=== PATIENT | male | born 1940 | race Caucasian/White ===

== ENCOUNTER → 2017-11-26 | Outpatient (CLI) | payer MEDICARE | END | disposition home or self-care (01) | LOC: KCIC US 09:33 | DX: B19.10 Unspecified viral hepatitis B without hepatic coma (principal); R79.89 Other specified abnormal findings of blood chemistry | CPT/HCPCS: 76705 ==

== ENCOUNTER → 2017-12-08 | Outpatient (CLI) | payer MEDICARE ==
[2017-12-08] MEDS: IOHEXOL 300 MG/ML 100ML VIAL. IV (10:52)
[2017-12-08] MEDS: IOHEXOL 240 MG/ML 50ML VIAL. PO (10:52)
== END | disposition home or self-care (01) ==
LOC: KCIC CT 09:10
DX: N28.89 Other specified disorders of kidney and ureter (principal); M47.896 Other spondylosis, lumbar region; M41.86 Other forms of scoliosis, lumbar region; K57.30 Diverticulosis of large intestine without perforation or abscess without bleeding; I77.811 Abdominal aortic ectasia; J84.10 Pulmonary fibrosis, unspecified; I25.10 Atherosclerotic heart disease of native coronary artery without angina pectoris
CPT/HCPCS: 74170; 82565; Q9966; Q9967

== ENCOUNTER → 2018-01-22 | Outpatient (CLI) | payer MEDICARE | END | disposition home or self-care (01) | LOC: PETSC 11:11 | DX: N40.0 Benign prostatic hyperplasia without lower urinary tract symptoms (principal); R18.8 Other ascites; K57.30 Diverticulosis of large intestine without perforation or abscess without bleeding; Z86.010 Personal history of colon polyps; J84.10 Pulmonary fibrosis, unspecified | CPT/HCPCS: 78815; A9552 ==

== ENCOUNTER 2018-02-09 08:03 | Day surgery (SDC) | payer MEDICARE ==
[~2018-02-09 08:03] MED LIST: LIDOCAINE 1% PF 2 ML VIAL. ID; LIDOCAINE 1% PF 30 ML VIAL.; MORPHINE SULFATE 4 MG/ML DISP.SYRIN. IV; ONDANSETRON PF 4 MG/2 ML VIAL. IV; PROCHLORPERAZINE 10 MG/2 ML VIAL. IV; fentaNYL PF VIAL 100 MCG/2 ML VIAL IV
[2018-02-09] MEDS ORDERED: LIDOCAINE 2% PF Vial for OR 5 ML VIAL. (08:27)
[2018-02-09] MEDS ORDERED: PROPOFOL 20 ML IV (08:27)
[2018-02-09] MEDS ORDERED: ONDANSETRON PF 4 MG/2 ML VIAL. (08:30)
[2018-02-09] MEDS ORDERED: DEXAMETHASONE SOD PHOS 20 MG/5 ML VIAL. (08:30)
[2018-02-09] MEDS: IV RINGERS,LACTATED 1000ML 1,000 ML IV (08:46)
[2018-02-09] MEDS ORDERED: ePHEDrine PF IN SALINE 50 MG/5 ML DISP.SYRIN IV (08:57)
[2018-02-09] MEDS ORDERED: fentaNYL PF VIAL 100 MCG/2 ML VIAL (08:57)
[2018-02-09] MEDS: BUPIVACAINE-EPI 0.25%-1:200000 50 ML VIAL. (09:52)
[2018-02-09] MEDS ORDERED: oxyCODONE/APAP 5/325 1 TAB TABLET (10:45)
[2018-02-09] MEDS: HYDROcodone/APAP 5/325MG 1 TAB TABLET PO (10:50)
[2018-02-09] MEDS ORDERED: ceFAZolin 2GM PREMIX 2 GM/50 ML BAG IV (12:00)
== END 2018-02-09 11:25 | disposition home or self-care (01) ==
LOC: SURG 08:03
DX: C85.14 Unspecified B-cell lymphoma, lymph nodes of axilla and upper limb (principal); Z79.82 Long term (current) use of aspirin; Z79.899 Other long term (current) drug therapy; Z86.010 Personal history of colon polyps; Z90.49 Acquired absence of other specified parts of digestive tract; I10 Essential (primary) hypertension; E78.5 Hyperlipidemia, unspecified; F41.9 Anxiety disorder, unspecified; H40.9 Unspecified glaucoma; Z98.890 Other specified postprocedural states; Z82.3 Family history of stroke; Z82.49 Family history of ischemic heart disease and other diseases of the circulatory system; Z87.891 Personal history of nicotine dependence
CPT/HCPCS: 38525; 88184; 88185; 88307; 88341; 88342; 88360; A7015; J0690; J1100; J2405; J2704; J3010

== ENCOUNTER → 2018-02-23 | Outpatient (CLI) | payer MEDICARE | END | disposition home or self-care (01) | LOC: US 09:55 | DX: L02.412 Cutaneous abscess of left axilla (principal); N64.89 Other specified disorders of breast | CPT/HCPCS: 76641; 76942; 87071; 87075; 87205 ==

== ENCOUNTER 2018-02-27 08:30 | Outpatient (CLI) | payer MEDICARE ==
[2018-02-27 09:00] LABS: ADD MAN DIFF? NO
[2018-02-27 09:20] LABS: BASO % 1 % (0-3); EOS # 0.2 x10^3/uL (0.0-0.7); EOS % 3 % (0-3); HEMATOCRIT 37.2 % (39.0-53.0); HEMOGLOBIN 12.4 g/dL (13.0-17.5); LYMPH # 1.2 x10^3/uL (1.0-4.8); LYMPH % 25 % (24-48); MEAN CORPUSCULAR HEMOGLOBIN 29 pg (25-35); MEAN CORPUSCULAR HGB CONC 33 g/dL (31-37); MEAN CORPUSCULAR VOLUME 87 fL (79-100); MONO # 0.8 x10^3/uL (0.0-1.1); MONO % 16 % (0-9); NEUT # 2.6 x10^3uL (1.8-7.7); NEUT % 54 % (31-73); PLATELET COUNT 195 x10^3/uL (140-400); RED CELL DISTRIBUTION WIDTH 15.9 % (11.5-14.5); WHITE BLOOD COUNT 4.8 x10^3/uL (4.0-11.0)
[2018-02-27] MEDS ORDERED: LIDOCAINE WITH 8.4% SOD BICARB 3 ML DISP.SYRIN. (09:30)
[2018-02-27 09:31] LABS: INR 1.1 (0.8-1.1); PROTHROMBIN TIME PATIENT 13.6 SEC (11.7-14.0)
[2018-02-27] MEDS ORDERED: MIDAZOLAM HCL/PF 2 MG/2 ML VIAL. (09:55)
[2018-02-27] MEDS ORDERED: fentaNYL PF VIAL 100 MCG/2 ML VIAL (09:55)
[2018-02-27] MEDS: fentaNYL PF VIAL 100 MCG/2 ML VIAL IV (10:16)
[2018-02-27] MEDS: LIDOCAINE WITH 8.4% SOD BICARB 3 ML DISP.SYRIN. IJ (10:16)
[2018-02-27] MEDS: MIDAZOLAM HCL/PF 2 MG/2 ML VIAL. IV (10:16)
== END 2018-02-27 11:30 | disposition home or self-care (01) ==
LOC: INTRAD 08:30
DX: C85.90 Non-Hodgkin lymphoma, unspecified, unspecified site (principal); I10 Essential (primary) hypertension; F41.9 Anxiety disorder, unspecified; F17.200 Nicotine dependence, unspecified, uncomplicated; E78.5 Hyperlipidemia, unspecified; Z86.010 Personal history of colon polyps; Z98.890 Other specified postprocedural states; Z87.39 Personal history of other diseases of the musculoskeletal system and connective tissue; Z79.82 Long term (current) use of aspirin; Z79.899 Other long term (current) drug therapy
CPT/HCPCS: 36415; 38222; 77012; 85025; 85610; 88184; 88185; 88237; 99152; J2250; J3010

== ENCOUNTER 2018-03-24 14:47 | Emergency (ER) | payer MEDICARE ==
[2018-03-24 15:43] LABS: BASO % 0 % (0-3); EOS # 0.2 x10^3/uL (0.0-0.7); EOS % 2 % (0-3); HEMATOCRIT 39.2 % (39.0-53.0); HEMOGLOBIN 13.1 g/dL (13.0-17.5); LYMPH # 2.9 x10^3/uL (1.0-4.8); LYMPH % 34 % (24-48); MEAN CORPUSCULAR HEMOGLOBIN 29 pg (25-35); MEAN CORPUSCULAR HGB CONC 33 g/dL (31-37); MEAN CORPUSCULAR VOLUME 86 fL (79-100); MONO # 1.4 x10^3/uL (0.0-1.1); MONO % 17 % (0-9); NEUT # 3.9 x10^3uL (1.8-7.7); NEUT % 47 % (31-73); PLATELET COUNT 223 x10^3/uL (140-400); RED BLOOD COUNT 4.56 x10^6/uL (4.30-5.70); RED CELL DISTRIBUTION WIDTH 16.2 % (11.5-14.5); WHITE BLOOD COUNT 8.4 x10^3/uL (4.0-11.0)
[2018-03-24 15:49] LABS: ANION GAP 9 (6-14); BLOOD UREA NITROGEN 62 mg/dL (8-26); BUN/CREATININE RATIO 52 (6-20); CALCIUM 10.4 mg/dL (8.5-10.1); CARBON DIOXIDE 24 mmol/L (21-32); CHLORIDE 102 mmol/L (98-107); CREATININE 1.2 mg/dL (0.7-1.3); GFR 58.4; GLUCOSE 116 mg/dL (70-99); POTASSIUM 4.2 mmol/L (3.5-5.1); SODIUM 135 mmol/L (136-145)
[2018-03-24 15:51] LABS: ADD MAN DIFF? YES
[2018-03-24] MEDS: IV NORMAL SALINE 1000ML BAG 1,000 ML IV ×2 (15:56→16:00)
[2018-03-24 15:57] LABS: ALBUMIN 2.9 g/dL (3.4-5.0); ALBUMIN/GLOBULIN RATIO 0.9 (1.0-1.7); ALK PHOS 105 U/L (46-116); ALT (SGPT) 35 U/L (16-63); AST (SGOT) 53 U/L (15-37); TOTAL BILIRUBIN 0.4 mg/dL (0.2-1.0); TOTAL PROTEIN 6.3 g/dL (6.4-8.2)
[2018-03-24 16:07] LABS: BILIRUBIN,URINE NEGATIVE (NEG); CLARITY,URINE CLEAR; COLOR,URINE YELLOW; GLUCOSE,URINE NEGATIVE (NEG); NITRITE,URINE NEGATIVE (NEG); PH,URINE 5.5; PROTEIN,URINE NEGATIVE (NEG-TRACE)
[2018-03-24 16:18] LABS: % BANDS 3 % (0-9); % BASOS 1 % (0-3); % EOS 3 % (0-5); % LYMPHS 39 % (24-48); % METAS 1 % (0-0); % MONOS 6 % (0-10); % SEGS 47 % (35-66); PLT ESTIMATE ADEQUATE (ADEQUATE)
[2018-03-24 16:19] LABS: BACTERIA,URINE 0 /HPF (0-FEW); HYALINE CASTS, URINE MODERATE /HPF; RBC,URINE 0 /HPF (0-2)
[2018-03-24 16:44] LABS: ANISOCYTOSIS SLIGHT; POLYCHROMASIA SLIGHT
== END 2018-03-24 17:35 | disposition home or self-care (01) ==
LOC: ER 14:47
DX: C85.90 Non-Hodgkin lymphoma, unspecified, unspecified site (principal); N28.9 Disorder of kidney and ureter, unspecified; I10 Essential (primary) hypertension; Z90.49 Acquired absence of other specified parts of digestive tract
CPT/HCPCS: 36415; 80053; 81001; 85007; 85025; 93005; 99284; 99285; J7030

== ENCOUNTER → 2018-07-02 | Outpatient (CLI) | payer MEDICARE ==
[2018-03-24 16:50] VITALS: BP 130/72
[~2018-07-02] MED LIST changes: +ASPI-630 PO; +CARV6.252 PO; +HYDR-971 PO; +LATA2.5D3 EACHEYE; -LIDOCAINE 1% PF 2 ML VIAL. ID; -LIDOCAINE 1% PF 30 ML VIAL.; -MORPHINE SULFATE 4 MG/ML DISP.SYRIN. IV; -ONDANSETRON PF 4 MG/2 ML VIAL. IV; -PROCHLORPERAZINE 10 MG/2 ML VIAL. IV; -fentaNYL PF VIAL 100 MCG/2 ML VIAL IV
--- NOTE | 2018-07-02 11:15 | RAD ---
FDG tumor localization scan, PET/CT, 07/02/2018: History: Restaging lymphoma Following IV injection of 12.8 mCi of 18 F-FDG, imaging was performed from the skull base to the proximal thighs. The noncontrast CT component was performed for attenuation correction and anatomic localization purposes rather than for primary diagnosis. The patient's blood glucose level at the time of injection was 119 MG/DL. Comparison is made to a study from 01/22/2018. Physiologic activity is evident in the neck. No cervical adenopathy is seen. Extensive mediastinal and hilar adenopathy seen on the previous study has regressed. For example a lymph node along the lateral aspect of the AP window which measured 2.3 cm in width on the previous study now measures 7 mm. On the previous study it demonstrate a a maximum SUV of 5.6. The current maximum SUV is 3.0. Hypermetabolic nodes persist in both internal mammary regions. No hypermetabolic pulmonary lesion is identified. Extensive retroperitoneal and mesenteric adenopathy has also regressed. These nodes have decreased considerably in size. A cluster of left paraaortic nodes which demonstrated a maximum SUV of 12.2 on the previous study now demonstrates a maximum SUV of 9.4. The degree of FDG uptake in these nodes remains greater than the liver, compatible with a Deauville score of 5. Hypermetabolic adenopathy in the iliac regions has also regressed. There is persistent streaky increased density in the all mentum. Soft tissue nodularity involving the omentum has regressed. Hepatic and splenic activity is unremarkable. Incidental CT findings include the presence of scattered coronary artery calcifications. The spleen currently measures 11 cm in craniocaudad extent. Sigmoid diverticulosis is evident. A small amount of free fluid is again noted in the pelvis. There is nonspecific prostatic enlargement. IMPRESSION: Extensive hypermetabolic adenopathy in the chest, abdomen and pelvis has improved since 01/22/2018, compatible with a favorable response to therapy.
== END | disposition home or self-care (01) ==
LOC: PETSC 08:18
PROVIDERS: ATTEND Internal Medicine Hematology & Oncology
DX: R59.0 Localized enlarged lymph nodes (principal); N40.0 Benign prostatic hyperplasia without lower urinary tract symptoms; K57.30 Diverticulosis of large intestine without perforation or abscess without bleeding; C83.03 Small cell B-cell lymphoma, intra-abdominal lymph nodes
CPT/HCPCS: 78815; A9552

== ENCOUNTER → 2018-10-01 | Outpatient (CLI) | payer MEDICARE ==
[2018-03-24 16:50] VITALS: BP 130/72
[~2018-10-01] MED LIST changes: +CARV6.2511 PO; -CARV6.252 PO; +HYDR-3164 PO; -HYDR-971 PO; +LEVO500T59 PO; +LORA2ORA7 SL; +MORP100S3 SL; +TENO300T5 PO
--- NOTE | 2018-10-01 12:41 | RAD ---
FDG tumor localization scan, PET/CT, 10/01/2018: History: Follow-up lymphoma Following IV injection of 12.7 mCi of 18 F-FDG, imaging was performed from the skull base to the proximal thighs. The noncontrast CT component was performed for attenuation correction and anatomic localization purposes rather than for primary diagnosis. The patient's blood glucose level at the time of injection was 144 MG/DL. There is physiologic activity in the neck. No abnormal neck FDG uptake is seen. Foci of increased FDG uptake in the mediastinum and fermin evident on the previous study have also regressed. There is only low-level residual FDG uptake at the fermin and in the mediastinum. The maximum SUV at the right hilum is 3.1 which is only slightly greater than the mediastinal background. There is a new focus of increased FDG uptake related to an 11 mm right paraspinous pleural based soft tissue nodule in the upper chest. The maximum SUV of this lesion is 6.9. There are also new foci of increased activity related to the sternum and the anterior aspect of an upper rib on the right. Mild infiltrate has developed posteriorly in the right lower lobe. This infiltrate is mildly hypermetabolic. This finding is likely on an inflammatory basis. Hypermetabolic abdominal and pelvic adenopathy has regressed. The most prominent focus of residual hypermetabolic activity is related to a cluster of para-aortic lymph nodes at the left renal level. The maximum SUV at this level is 8.2. This represents a Deauville criteria score of 5. Several foci of abnormal activity have developed within the liver. The most prominent of these lies posteriorly in the right lobe and demonstrates a maximum SUV of approximately 13. The noncontrast CT component does not demonstrate a discrete corresponding mass in this region. Several foci of increased activity are noted in the distal sigmoid colon, distal descending colon, cecum and distal small bowel. These findings are probably physiologic. A neoplastic or infectious etiology cannot be entirely excluded. A new focus of increased activity is seen related to the right ischium. No underlying destructive lesion or fracture is evident. IMPRESSION: 1. Mixed therapeutic response as described above with: A. Improving hypermetabolic adenopathy in the chest and abdomen. B. New hypermetabolic liver foci. C. New small right paraspinous lesion in the upper chest. D. New abnormal bony uptake at the sternal, a right rib and the right ischium. 2. Mildly hypermetabolic right lower lobe infiltrate, likely inflammatory.
== END | disposition home or self-care (01) ==
LOC: PETSC 08:31
PROVIDERS: ATTEND Internal Medicine Hematology & Oncology
DX: R91.8 Other nonspecific abnormal finding of lung field (principal); J98.9 Respiratory disorder, unspecified
CPT/HCPCS: 78815; A9552